=== PATIENT | female | born 1990 | race Caucasian/White ===

== ENCOUNTER 2017-02-20 12:51 | Day surgery (SDC) | payer SELFPAY ==
[~2017-02-20 12:51] MED LIST: OXYCODONE/APAP 5/325 TAB PO SCH
--- NOTE | 2017-02-20 13:56 | EDPHY ---
H & P Stated Complaint: painful buldge on rectum Time Seen by Provider: 02/20/17 12:56 HPI/ROS: CHIEF COMPLAINT: Rectal pain HISTORY OF PRESENT ILLNESS: 26-year-old female presents emergency department complaining rectal pain and pressure that started 3 days ago. Patient reports that started gradually mild pressure and has increased to pain. Patient states she cannot sleep due to the pain. Patient denies fevers or chills, she denies previous history of same. No abdominal pain, no nausea, vomiting or diarrhea. Patient reports pain with bowel movement this morning. She denies history of hemorrhoids, she denies itching. Normal bowel movement this morning, no blood. No urinary frequency, urgency or dysuria. She denies other complaints. REVIEW OF SYSTEMS: A comprehensive 10 point review of systems is otherwise negative aside from elements mentioned in the history of present illness. Source: Patient Exam Limitations: No limitations - Personal History LMP (Females 10-55): Now Current Tetanus/Diphtheria Vaccine: Yes Current Tetanus Diphtheria and Acellular Pertussis (TDAP): Yes - Medical/Surgical History Hx Asthma: No Hx Chronic Respiratory Disease: No Hx Diabetes: No Hx Cardiac Disease: No Hx Renal Disease: No Hx Cirrhosis: No Hx Alcoholism: No Hx HIV/AIDS: No Hx Splenectomy or Spleen Trauma: No Other PMH: PMH:ortho. PSH:mole removed, - Social History Smoking Status: Heavy smoker - Physical Exam Exam: Physical Exam Gen: Alert and Oriented, tearful HEENT: PERRL, moist mucous membranes NECK: no meningismus CV: regular rate and regular rhythm PULM: CTAB, no wheezes ABDOMEN: soft, non tender to palpation, BS present RECTAL: erythema, induration, tenderness to 7oclock position of anus. No hemorrhoids noted, extreme tenderness on digital exam BACK: No CVA tenderness NEURO: Neurologically grossly intact EXTREMITIES: normal appearing SKIN: no rash or break in skin on exposed skin PSYCH: answers questions appropriately. Constitutional: Initial Vital Signs Temperature (C) 36.9 C 02/20/17 12:53 Heart Rate 106 H 02/20/17 12:53 Respiratory Rate 16 02/20/17 12:53 Blood Pressure 131/78 H 02/20/17 12:53 O2 Sat (%) 96 02/20/17 12:53 O2 Delivery Mode Room Air Allergies/Adverse Reactions: No Known Allergies Allergy (Unverified 02/20/17 12:56) Home Medications: Medication Instructions Recorded NK [No Known Home Meds] 02/20/17 Medical Decision Making - Diagnostics Imaging Results: Imaging Impressions Pelvis CT 02/20/17 13:57 Impression: Perianal abscess. No obvious extension into the pararectal soft tissues. Results discussed with Saroj Dey. Imaging: Discussed imaging studies w/ call center director Radiologist ED Course/Re-evaluation: IV established, CBC, i-STAT, test obtained, CT pelvis with IV contrast ordered to evaluate abscess. Patient is given 5 mg of Dilaudid IV for pain. 345pm- Dr. Gilmore consulted and will see the patient and evaluate her perianal abscess seen on CT scan. 444pm- Dr. Gilmore will take the patient to the operating room to drain her abscess. She has been given another dose of IV pain medication. - Data Points Laboratory Results: Laboratory Results 02/20/17 14:20 02/20/17 14:20 WBC 12.49 10^3/uL H 10^3/uL (3.80-9.50) RBC 4.36 10^6/uL 10^6/uL (4.18-5.33) Hgb 14.7 g/dL g/dL (12.6-16.3) Hct 42.4 % % (38.0-47.0) MCV 97.2 fL fL (81.5-99.8) MCH 33.7 pg pg (27.9-34.1) MCHC 34.7 g/dL g/dL (32.4-36.7) RDW 12.6 % % (11.5-15.2) Plt Count 263 10^3/uL 10^3/uL (150-400) MPV 10.1 fL fL (8.7-11.7) Neut % (Auto) 80.0 % H % (39.3-74.2) Lymph % (Auto) 13.1 % L % (15.0-45.0) [place] % (Auto) 6.2 % % (4.5-13.0) Eos % (Auto) 0.1 % L % (0.6-7.6) Baso % (Auto) 0.2 % L % (0.3-1.7) Nucleat RBC Rel Count 0.0 % % (0.0-0.2) Absolute Neuts (auto) 10.00 10^3/uL H 10^3/uL (1.70-6.50) Absolute Lymphs (auto) 1.63 10^3/uL 10^3/uL (1.00-3.00) Absolute Monos (auto) 0.77 10^3/uL 10^3/uL (0.30-0.80) Absolute Eos (auto) 0.01 10^3/uL L 10^3/uL (0.03-0.40) Absolute Basos (auto) 0.03 10^3/uL 10^3/uL (0.02-0.10) Absolute Nucleated RBC 0.00 10^3/uL 10^3/uL (0-0.01) Immature Gran % 0.4 % % (0.0-1.1) Immature Gran # 0.05 10^3/uL 10^3/uL (0.00-0.10) Departure - Departure Disposition: [facility] Inpatient Acute Clinical Impression: Perianal abscess Condition: Good Referrals: NONE *PRIMARY CARE P,. [Primary Care Provider] - As per Instructions
[2017-02-20] MEDS ORDERED: HYDROmorphONE/DILAUDID 1 MG/ML SYR IVP ONE ×2 (13:59→16:41)
[2017-02-20 14:29] LABS: % IMMATURE GRANULYOCYTES 0.4 % (0.0-1.1); ABSOLUTE IMMATURE GRANULOCYTES 0.05 10^3/uL (0.00-0.10); ADD DIFF? NO; ADD MORPH? NO; ADD SCAN? NO; ATYPICAL LYMPHOCYTE FLAG 0 (0-99); FRAGMENT RBC FLAG 0 (0-99); HEMATOCRIT 42.4 % (38.0-47.0); HEMOGLOBIN 14.7 g/dL (12.6-16.3); LEFT SHIFT FLG 20 (0-99); LIPEMIA HEMOLYSIS FLAG 90 (0-99); MEAN CELL HEMOGLOBIN 33.7 pg (27.9-34.1); MEAN CELL HEMOGLOBIN CONCENTR. 34.7 g/dL (32.4-36.7); MEAN CELL VOLUME 97.2 fL (81.5-99.8); MEAN PLATELET VOLUME 10.1 fL (8.7-11.7); PLATELET CLUMPS FLAG 10 (0-99); PLATELET COUNT 263 10^3/uL (150-400); RED BLOOD CELL COUNT 4.36 10^6/uL (4.18-5.33); RED CELL DISTRIBUTION WIDTH 12.6 % (11.5-15.2)
[2017-02-20] MEDS ORDERED: IOPAMIDOL (ISOVUE-300) 100 ML BTL ONE (14:37)
[2017-02-20 15:56] VITALS: RESP 16; O2SAT 95
[2017-02-20 17:09] VITALS: BP 118/66; PULSE 71; TEMP 97.7
[2017-02-20] MEDS ORDERED: BUPIVACAINE 0.5% 30 ML SDV ONE (17:28)
[2017-02-20] MEDS ORDERED: BUPIVACAINE/EPI 0.5% 30 ML SDV ONE (17:42)
[2017-02-20] MEDS ORDERED: fentaNYL 100 MCG/2 ML INJ ONE ×2 (17:51→18:42)
[2017-02-20] MEDS ORDERED: LIDOCAINE 2% 5 ML SDV ONE (17:51)
[2017-02-20] MEDS ORDERED: PROPOFOL 200 MG/20 ML VIAL ONE ×2 (17:51→18:15)
[2017-02-20] MEDS ORDERED: LIDOCAINE 2% JELLY 5 ML TUBE ONE (17:53)
[2017-02-20] MEDS ORDERED: MIDAZOLAM 2 MG/2 ML VIAL ONE (17:55)
[2017-02-20] MEDS ORDERED: KETOROLAC 15 MG/1 ML SDV ONE (18:43)
--- NOTE | 2017-02-20 19:04 | GOP ---
[f rep st] OPERATIVE REPORT Corrected report DATE OF OPERATION: 02/20/2017 SURGEON: Horace Gilmore MD PREOPERATIVE DIAGNOSIS: Perirectal abscess. POSTOPERATIVE DIAGNOSIS: Perirectal abscess. PROCEDURE PERFORMED: Drainage of perirectal abscess. FINDINGS: INDICATIONS: A 26-year-old female with a painful left perirectal abscess. DESCRIPTION OF PROCEDURE: The patient was positioned in stirrups. A digital rectal exam showed a fullness in the left perirectal area, which was infiltrated with Marcaine, incised and drained. Purulence was obtained. It was irrigated out with saline. A Mallinckrodt catheter, 24-[place] Islander was placed in the cavity and was self-retaining. Upon completion of the digital rectal exam, a small polyp was seen growing off a small hemorrhoid. This was excised with cautery and submitted as a specimen. The patient tolerated the procedure well. /[id number]/MODL Federico WT, 02/23/17, yovani BRIONES
[2017-02-20] MEDS ORDERED: OXYCODONE/APAP 5/325 TAB ONE (19:49)
== END 2017-02-20 20:35 | disposition home or self-care (01) ==
LOC: FSGY 16:41 → UNDOADMOB 16:41 → FSGY 20:35
PROVIDERS: ATTEND Surgery
PROC: 0D9P00Z Drainage of Rectum with Drainage Device, Open Approach (ICD-10-PCS; principal; 2017-02-20 18:01)
PROC: 065Y0ZC Destruction of Hemorrhoidal Plexus, Open Approach (ICD-10-PCS; principal; 2017-02-20 18:01)
DX: K62.0 Anal polyp (principal); I89.0 Lymphedema, not elsewhere classified
CPT/HCPCS: 96374; J1170; J1885; J2250; J2704; J3010; Q9967

== ENCOUNTER 2017-12-11 16:38 | Emergency (ER) | payer OTHER ==
[2017-12-11 16:46] VITALS: RESP 18; TEMP 98.1
--- NOTE | 2017-12-11 17:12 | EDPHY ---
General Time Seen by Provider: 12/11/17 17:01 Narrative: CHIEF COMPLAINT: Left buttock pain, concern for abscess HISTORY OF PRESENT ILLNESS: Patient complains of 2 days history of left buttock pain. Gradual onset, constant duration. Located on the left inner buttock near the anal verge. It is constant pain. Described as a pressure. Moderate at this time. She is concerned because she was diagnosed with the perianal abscess last year in January. It started the same as this but she waited 4 days longer. She has no nausea or vomiting. No fever. No abdominal pain. She has had difficulty with bowel movements 2 to fear of pain. Vaginal bleeding or discharge. No feces from the vagina. No drainage from the buttock. No other associated complaints or modify TETANUS STATUS: Up-to-date MEDICAL/SURGICAL/SOCIAL HISTORY: Previous perianal abscess with surgical intervention here in 2017. Nonsmoker. Lives and works here locally. REVIEW OF SYSTEMS: Ten systems reviewed and are negative unless otherwise noted in the HPI EXAMINATION General Appearance: Alert, no distress Head: normocephalic, atraumatic Cardiovascular: Regular rhythm. No murmur. Respiratory: Lungs clear in all ramirez. Neurological: A&O, strength symmetric Skin: Warm and dry, no rash. No petechiae or purpura. No obvious abscess, fluctuance, induration or cellulitis in the left buttock or perianal region. 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 Left buttock pain near the anal verge with no obvious area of fluctuance or abscess by direct visualization. Patient has complaints that she says are completely the same as last year when she was diagnosed with a perianal abscess. Given this information in conjunction with no obvious abnormality on direct visualization, I will proceed with CT scan of the pelvis. She is declining pain medication at this time. She is awake and alert, no acute distress. Vital signs are stable with very mild tachycardia. She is anxious about this but in no acute distress. 5:25 p.m. Creatinine by i-STAT laboratory study is 0.7. CT has been notified. HCG pending and then proceed with CT scan. 6:40 p.m. Notified by radiologist Dr. Finer. There is no abscess on the CT scan. There is mild asymmetry of fluid in this area. There appears to be residual pocket from previous incision and drainage. 7:00 p.m. Case discussed with Dr. Horace Gilmore. We discussed the CT scan findings, HPI physical exam. He does not feel she requires antibiotics but feels that this is reasonable empiric coverage at this time. He will be happy to see in the office tomorrow. 7:10 p.m. I discussed the findings, laboratory studies and my conversation with the general surgeon with the patient. I have re-evaluated her at this time. She is very relieved to hear this and comfortable with this plan. She will be discharged home with 1st dose of Augmentin given here. She provided a short course of Percocet by prepack. Prescriptions for many medication will be filled tomorrow. She will contact his office tomorrow morning to be seen there. We discussed ED precautions. She is comfortable this plan and discharged home stable condition. SUPERVISION: Patient was independently examined, but I discussed the case with my secondary supervising physician Dr. Ford - Diagnostics Imaging Results: Imaging Impressions Pelvis CT 12/11/17 17:14 Impression: 1. Tiny minimal subcentimeter residual collection in region of previous left perianal abscess. 2. Normal-appearing uterus and ovaries. Findings discussed with Koffi Adler PAC at 18:38 hour, 12/11/2017. - History Smoking Status: Heavy smoker - Objective Vital Signs: Initial Vital Signs Temperature (C) 98.1 F 12/11/17 16:43 Heart Rate 101 H 12/11/17 16:43 Respiratory Rate 18 12/11/17 16:43 Blood Pressure 100/73 12/11/17 16:43 O2 Sat (%) 99 12/11/17 16:43 O2 Delivery Mode Room Air Allergies/Adverse Reactions: No Known Allergies Allergy (Unverified 02/20/17 12:56) Home Medications: Medication Instructions Recorded Amoxicillin/Clavulanate Pot 875 mg PO BID #19 tab 12/11/17 [Augmentin 875 MG TAB (*)] oxyCODONE HCL/ACETAMINOPHEN 1 each PO Q4-6PRN PRN #7 tablet 12/11/17 [Percocet 5-325 mg Tablet] Laboratory Results: Laboratory Results 12/11/17 16:18 12/11/17 12/11/1712/11/18 17:24 16:18 16:18 WBC 9.97 10^3/uL H 10^3/uL (3.80-9.50) RBC 4.19 10^6/uL 10^6/uL (4.18-5.33) Hgb 13.9 g/dL g/dL (12.6-16.3) POC Hgb 14.6 gm/dL gm/dL (12.6-16.3) Hct 40.1 % % (38.0-47.0) POC Hct 43 % % (38-47) MCV 95.7 fL fL (81.5-99.8) MCH 33.2 pg pg (27.9-34.1) MCHC 34.7 g/dL g/dL (32.4-36.7) RDW 12.9 % % (11.5-15.2) Plt Count 243 10^3/uL 10^3/uL (150-400) MPV 9.8 fL fL (8.7-11.7) Neut % (Auto) 69.7 % % (39.3-74.2) Lymph % (Auto) 23.3 % % (15.0-45.0) [place] % (Auto) 5.3 % % (4.5-13.0) Eos % (Auto) 0.8 % % (0.6-7.6) Baso % (Auto) 0.6 % % (0.3-1.7) Nucleat RBC Rel Count 0.0 % % (0.0-0.2) Absolute Neuts (auto) 6.95 10^3/uL H 10^3/uL (1.70-6.50) Absolute Lymphs (auto) 2.32 10^3/uL 10^3/uL (1.00-3.00) Absolute Monos (auto) 0.53 10^3/uL 10^3/uL (0.30-0.80) Absolute Eos (auto) 0.08 10^3/uL 10^3/uL (0.03-0.40) Absolute Basos (auto) 0.06 10^3/uL 10^3/uL (0.02-0.10) Absolute Nucleated RBC 0.00 10^3/uL 10^3/uL (0-0.01) Immature Gran % 0.3 % % (0.0-1.1) Immature Gran # 0.03 10^3/uL 10^3/uL (0.00-0.10) POC Sodium 141 mEq/L mEq/L (135-145) POC Potassium 3.7 mEq/L mEq/L (3.3-5.0) POC Chloride 105 mEq/L mEq/L (97-110) POC BUN 14 mg/dL mg/dL (7-23) POC Creatinine 0.7 mg/dL mg/dL (0.6-1.0) POC Glucose 84 mg/dL mg/dL (70-100) Lipase Beta HCG, Qual NEGATIVE 12/11/17 16:18 WBC RBC Hgb POC Hgb Hct POC Hct MCV MCH MCHC RDW Plt Count MPV Neut % (Auto) Lymph % (Auto) [place] % (Auto) Eos % (Auto) Baso % (Auto) Nucleat RBC Rel Count Absolute Neuts (auto) Absolute Lymphs (auto) Absolute Monos (auto) Absolute Eos (auto) Absolute Basos (auto) Absolute Nucleated RBC Immature Gran % Immature Gran # POC Sodium POC Potassium POC Chloride POC BUN POC Creatinine POC Glucose Lipase 72 IU/L IU/L (23-300) Beta HCG, Qual Medications Given: Discontinued Medications Sodium Chloride (Ns) 1,000 mls @ 0 mls/hr IV ONCE ONE; Wide Open PRN Reason: Protocol Stop: 12/11/17 18:01 Last Admin: 12/11/17 18:11 Dose: 1,000 mls Point of Care Test Results: 12/11/17 17:24 POC Sodium 141 POC Potassium 3.7 POC Chloride 105 POC BUN 14 POC Creatinine 0.7 POC Glucose 84 Departure - Departure Disposition: Home, Routine, Self-Care Clinical Impression: Acute buttock pain Condition: Good Instructions: Oxycodone/Acetaminophen (By mouth), Amoxicillin/Clavulanate Potassium (By mouth), Rectal Abscess (ED) Additional Instructions: 1. Augmentin as prescribed to completion 2. Percocet as prescribed and provided every 4-6 hours as needed for pain. Do not mix with any drugs or alcohol. Do not drive on this 3. Follow up with your establish surgeon Dr. Gilmore tomorrow as discussed 4. ED precautions as discussed Referrals: Horace Gilmore MD [Medical Doctor] - As per Instructions Prescriptions: Amoxicillin/Clavulanate Pot [Augmentin 875 MG TAB (*)] 875 mg PO BID #19 tab oxyCODONE HCL/ACETAMINOPHEN [Percocet 5-325 mg Tablet] 1 each PO Q4-6PRN PRN #7 tablet PRN Reason: Pain, Breakthrough
[2017-12-11 17:30] LABS: PLATELET COUNT 243 10^3/uL (150-400)
[2017-12-11] MEDS ORDERED: IOPAMIDOL (ISOVUE-300) 100 ML BTL ONE (17:46)
[2017-12-11] MEDS ORDERED: NS 1,000 ML IV ONE (18:00)
[2017-12-11] MEDS ORDERED: OXYCODONE/APAP 5/325MG PREPACK#4 BTL TAKEHOME ONE (19:08)
[2017-12-11] MEDS ORDERED: AMOXICILLIN/CLAVULANATE POT 875/125 MG TAB PO ONE (19:08)
[2017-12-11 19:22] VITALS: BP 107/63; PULSE 79; O2SAT 97
== END 2017-12-11 19:23 | disposition home or self-care (01) ==
DX: M53.3 Sacrococcygeal disorders, not elsewhere classified (principal); F17.200 Nicotine dependence, unspecified, uncomplicated; E86.9 Volume depletion, unspecified
CPT/HCPCS: 82947-QW; Q9967